=== PATIENT | female | born 1955 | race African-American/Black ===

== ENCOUNTER 2017-05-29 20:47 | Emergency (ER) | payer OTHER ==
[~2017-05-29] VITALS: Ht 162.6 cm; Wt 72.6 kg
[2017-05-29 21:14] VITALS: BP 00/00
[2017-05-29 21:22] LABS: ABSOLUTE NEUTROPHILS 4.9 thou/uL (1.4-8.2); BASOPHILS 0.7 % (0.0-2.0); EOSINOPHILS 3.4 % (0.0-3.0); HEMATOCRIT 30.2 % (37.0-47.0); LYMPHOCYTES 51.6 % (24.0-44.0); MCH 22.3 pg (26.0-34.0); MCHC 29.9 g/dL (28.0-37.0); MCV 74.5 fL (80.0-100.0); MONOCYTES 4.5 % (1.0-8.0); PLATELET COUNT 204 thou/uL (150-400); POLYS 39.8 % (36.0-66.0); RBC 4.06 mil/uL (4.20-5.00); RDW 18.9 % (10.5-14.5); WBC 12.3 thou/uL (4.0-11.0)
[2017-05-29 21:39] LABS: CALCIUM 8.9 mg/dL (8.5-10.1); CREATININE 1.2 mg/dL (0.6-1.0); POTASSIUM 5.1 mmol/L (3.5-5.1)
[2017-05-29 21:41] LABS: ALBUMIN 2.2 g/dL (3.4-5.0); MAGNESIUM 1.8 mg/dL (1.8-2.4); TOTAL BILIRUBIN 0.2 mg/dL (<0.1-1.0); TOTAL PROTEIN 4.7 g/dL (6.4-8.2); TROPONIN-I 0.07 ng/mL (<0.06)
[2017-05-29 22:09] LABS: ANISOCYTOSIS 2+; HYPOCHROMASIA 2+; POLYCHROMASIA SLIGHT; SCHISTOCYTES 2+
== END 2017-05-30 00:34 ==
LOC: ER 20:47 → EROBS 21:01 → ER 05-30 00:34
PROVIDERS: Emergency Medicine
DX: I46.9 Cardiac arrest, cause unspecified (principal)